=== PATIENT | female | born 1950 | race Asian ===

== ENCOUNTER 2022-07-15 09:41 | Emergency (ER) | payer MEDICARE ==
[~2022-07-15] VITALS: Ht 154.9 cm; Wt 72.6 kg
--- NOTE | 2022-07-15 09:45 | NUR ---
Patient to ER bed 5 to gown for evaluation. Side rails up. Report given to Bailey JURADO.
--- NOTE | 2022-07-15 09:50 | NUR ---
ER at bedside examining patient.
--- NOTE | 2022-07-15 09:58 | NUR ---
EKG FAXED TO [facility] @ [phone] HARVEY FOR EKG REVIEW.
[2022-07-15 10:03] VITALS: BP_SYST 110
[2022-07-15] MEDS ORDERED: ASPIRIN 81 MG TAB.CHEW PO ONE (10:15)
== END 2022-07-15 10:20 | disposition short-term general hospital (02) ==
LOC: SED 09:41
DX: I21.9 Acute myocardial infarction, unspecified (principal); R55 Syncope and collapse; R06.02 Shortness of breath; R07.2 Precordial pain; E11.9 Type 2 diabetes mellitus without complications; I10 Essential (primary) hypertension; Z79.899 Other long term (current) drug therapy
CPT/HCPCS: 71045; 82962; 99291